=== PATIENT | male | born 1960 | race Caucasian/White ===

== ENCOUNTER 2017-11-18 01:52 | Emergency (ER) | payer BC ==
[~2017-11-18] VITALS: Ht 177.8 cm; Wt 87.7 kg
[2017-11-18] MEDS ORDERED: LIDOcaine 1.5% w/epinephrine 1:200,000 5ml ampul IJ ONE (02:45)
[2017-11-18] MEDS ORDERED: TETanus/Pertussis (Acell)/Diphther VAC/PF (Tdap-Adult) 0.5ml syringe IM ONE (02:45)
[2017-11-18] MEDS ORDERED: cephalexin 500mg capsule PO ONE (02:45)
[2017-11-18] MEDS ORDERED: CEPH250T PO (03:38)
[2017-11-18] MEDS ORDERED: HYDR-4383 PO (03:38)
[2017-11-18 03:53] VITALS: BP 152/86
== END 2017-11-18 03:55 | disposition home or self-care (01) ==
LOC: ER 01:52
DX: S01.01XA Laceration without foreign body of scalp, initial encounter (principal); Z79.2 Long term (current) use of antibiotics; Z79.899 Other long term (current) drug therapy; Z90.49 Acquired absence of other specified parts of digestive tract; W17.89XA Other fall from one level to another, initial encounter; Y93.89 Activity, other specified; Y92.89 Other specified places as the place of occurrence of the external cause; Y99.8 Other external cause status
CPT/HCPCS: 12034; 90471; 90715; 99284; J3490